=== PATIENT | female | born 1925 | race Caucasian/White ===

== ENCOUNTER → 2016-04-14 | Outpatient (CLI) | payer OTHER ==
[~2016-04-14] MED LIST: ADULT LOW DOSE81 MG PO; AZITHROMYCIN250 MG PO; BYSTOLIC5 MG PO; CALCIUM600 MG PO; CLOPIDOGREL75 MG PO; COLACE 100MG C100 MG PO; COZAAR100 MG PO; FUROSEMIDE20 MG PO; HYDROCORTISONE30 G4 EXT; IMDUR ER TAB 3030 MG PO; LEVAQUIN TAB 5500 MG PO; LEVAQUIN250 MG PO; LOPRESSOR 25 MG25 MG PO; MACROBID 100 M100 M1 PO; MELATONIN3 MG PO; PREDNISONE10 MG PO; PROBIOTIC1 EAC1 PO; PROTONIX 40 MG40 M1 PO; RANEXA500 MG PO; RESTASIS 0.05%1 EACH OD; SIMVASTATIN20 MG PO; SYSTANE 0.3-0.1 EACH OP; TYLENOL 325MG325 MG PO; TYLENOL W/CODEIN1 E1 PO; VENTOLIN/PROVE0.5 ML INH; VITAMIN D2000 UNI1 PO; VITAMIN D2000 UNIT PO
== END ==
LOC: OPSV 12:53
DX: N39.0 Urinary tract infection, site not specified (principal); Z88.0 Allergy status to penicillin; Z88.1 Allergy status to other antibiotic agents; Z88.2 Allergy status to sulfonamides
CPT/HCPCS: G0463

== ENCOUNTER → 2016-06-09 | Outpatient (CLI) | payer OTHER | LOC: KOH-I 11:30 | DX: G44.89 Other headache syndrome (principal); E55.9 Vitamin D deficiency, unspecified; E78.2 Mixed hyperlipidemia; I12.9 Hypertensive chronic kidney disease with stage 1 through stage 4 chronic kidney disease, or unspecified chronic kidney disease; N18.3 Chronic kidney disease, stage 3 (moderate); I25.10 Atherosclerotic heart disease of native coronary artery without angina pectoris; J30.89 Other allergic rhinitis; K13.29 Other disturbances of oral epithelium, including tongue; K59.09 Other constipation; M54.2 Cervicalgia; N30.00 Acute cystitis without hematuria; N30.10 Interstitial cystitis (chronic) without hematuria; N39.0 Urinary tract infection, site not specified; R07.89 Other chest pain; R10.10 Upper abdominal pain, unspecified; R10.30 Lower abdominal pain, unspecified; R23.8 Other skin changes; R53.83 Other fatigue; R61 Generalized hyperhidrosis; Z95.0 Presence of cardiac pacemaker; R93.0 Abnormal findings on diagnostic imaging of skull and head, not elsewhere classified | CPT/HCPCS: 70450 ==